=== PATIENT | male | born 1955 | race Caucasian/White ===

== ENCOUNTER → 2018-03-21 | Outpatient (CLI) | payer OTHER ==
--- NOTE | 2018-03-21 09:50 | PCVCIMAG ---
APPROVED REPORT Study performed: 03/21/2018 08:36:06 EXAM: Comprehensive 2D, Doppler, and color-flow Echocardiogram Patient Location: Echo lab Status: routine BSA: 2.28 HR: 59 bpmBP: 162/74 mmHg Rhythm: Atrial Fibrillation Other Information Study Quality: Adequate Risk Factors: Cardiac Risk Factors: HTN, DM Indications Pre-Op Atrial Fibrillation diastolic heart failure 2D Dimensions IVSd: 16.09 (7-11mm) LVDd: 52.58 mm PWd: 15.76 (7-11mm) LVDs: 40.76 (25-40mm) Left Atrium: 49.77 (27-40mm) Aortic Root: 35.98 mm LV Single Plane 4CH: 61.22 % LV Single Plane 2CH: 68.34 % Biplane EF: 64.5 % Volumes Left Atrial Volume (Systole) Single Plane 4CH: 88.57 mLSingle Plane 2CH: 79.03 mL LA ESV Index: 38.00 mL/m2 Aortic Valve AoV Peak Bruno.: 1.48 m/s AO Peak Gr.: 8.77 mmHgLVOT Max P.00 mmHg LVOT Max V: 1.22 m/s Mitral Valve IVRT: 72.66 ms Pulmonary Valve PV Peak Bruno.: 1.05 m/sPV Peak Gr.: 4.38 mmHg Pulmonary Vein P Vein S: 0.31 m/s P Vein D: 0.80 m/s P Vein S/D Ratio: 0.39 Tricuspid Valve TR Peak Bruno.: 2.39 m/s TR Peak Gr.: 22.92 mmHg Left Ventricle The left ventricle is normal size. There is normal LV segmental wall motion. Moderate concentric left ventricular hypertrophy. Left ventricular systolic function is normal. The left ventricular ejection fraction is within the normal range. LVEF is 60-65%. This study is not technically sufficient to allow evaluation of the LV diastolic function due to atrial fibrillation. Right Ventricle The right ventricle is normal size. The right ventricular systolic function is normal. Atria Left atrium is moderately dilated. Right atrium is moderately dilated. Aortic Valve The aortic valve is normal in structure. Mild aortic regurgitation. There is no aortic valvular stenosis. Mitral Valve Mild mitral annular calcification Mild mitral regurgitation. No evidence of mitral valve stenosis. Tricuspid Valve The tricuspid valve is normal in structure. Trace tricuspid regurgitation with PAP of 30 mmHg. Pulmonic Valve The pulmonary valve is normal in structure. Trace pulmonic regurgitation. Great Vessels The aortic root is normal in size. IVC is normal in size and collapses >50% with inspiration. Pericardium There is no pericardial effusion. There is no pleural effusion. <Conclusion> Left ventricular systolic function is normal. There is normal LV segmental wall motion. LVEF is 60-65%. Left atrium is moderately dilated. The aortic valve is normal in structure. Mild aortic regurgitation Mild mitral annular calcification. Mild mitral regurgitation. Trace tricuspid regurgitation with pulmonary artery pressure of 30 mmHg. There is no pericardial effusion.
== END | disposition home or self-care (01) ==
LOC: PCVCIMAG 13:00
PROVIDERS: ATTEND Internal Medicine
DX: Z01.818 Encounter for other preprocedural examination (principal); I08.0 Rheumatic disorders of both mitral and aortic valves; I48.91 Unspecified atrial fibrillation; I11.0 Hypertensive heart disease with heart failure; I50.30 Unspecified diastolic (congestive) heart failure
CPT/HCPCS: 93306